=== PATIENT | male | born 1990 | race African-American/Black ===

== ENCOUNTER 2019-07-14 16:46 | Emergency (ER) | payer OTHER ==
[~2019-07-14] VITALS: Ht 182.9 cm; Wt 124.7 kg
[2019-07-14 17:16] LABS: ABSOLUTE NEUTROPHILS 5.8 thou/uL (1.4-8.2); BASOPHILS 0.4 % (0.0-2.0); EOSINOPHILS 1.5 % (0.0-3.0); HEMATOCRIT 38.1 % (42.0-52.0); HEMOGLOBIN 13.3 gm/dL (14.0-18.0); LYMPHOCYTES 26.3 % (24.0-44.0); MCH 29.6 pg (26.0-34.0); MCHC 34.9 g/dL (28.0-37.0); MCV 84.8 fL (80.0-100.0); MONOCYTES 7.4 % (1.0-8.0); PLATELET COUNT 224 thou/uL (150-400); POLYS 64.4 % (36.0-66.0); RDW 12.7 % (10.5-14.5); WBC 9.1 thou/uL (4.0-11.0)
[2019-07-14 17:23] LABS: ANION GAP 9 mmol/L (7-16); BUN 13 mg/dL (7-18); CALCIUM 8.8 mg/dL (8.5-10.1); CHLORIDE 101 mmol/L (98-107); CO2 27 mmol/L (21-32); CREATININE 1.1 mg/dL (0.7-1.3); GLUCOSE 298 mg/dL (74-106); POTASSIUM 3.7 mmol/L (3.5-5.1); SODIUM 137 mmol/L (136-145)
[2019-07-14 17:32] LABS: MAGNESIUM 1.5 mg/dL (1.8-2.4); TROPONIN-I <0.06 ng/mL (<0.06)
[2019-07-14] MEDS ORDERED: LANTUS100 UNIT/M SUBQ ×2 (17:35→18:08)
[2019-07-14] MEDS ORDERED: NOVOLOG100 UNIT/1 SUBQ (17:36)
[2019-07-14] MEDS ORDERED: HYDROCHLOROTH12.5 M1 PO (18:08)
[2019-07-14] MEDS ORDERED: HUMALOG100 UNIT/1 SUBQ (18:08)
[2019-07-14] MEDS ORDERED: LISINOPRIL20 MG PO (19:59)
[2019-07-14] MEDS ORDERED: METFORMIN HCL500 MG PO (19:59)
[2019-07-14 22:01] VITALS: BP 174/106
--- NOTE | 2019-07-17 08:59 | EKG ---
[address] [place] [place] [address] ELECTROCARDIOGRAM REPORT Name: SHAR WYNN Room #: DEP Debbie#: [id number] Admission: 07/14/19 Attend Phys: Discharge: 07/14/19 Date of : [birth year] Report #: [id number] THIS REPORT FOR: //name// [facility] ED Test Date: 2019-07-14 Test Time: 16:58:19 Pat Name: SHAR WYNN Department: Room: Gender: M Implementation Specialist: [facility] 1990 Requested By: Marcelo Cadet Order Number: [id number] MD: Liang Mohr Measurements Intervals [place] Rate: 87 P: 15 NE: 202 QRS: 30 QRSD: 109 T: 251 QT: 363 QTc: 437 Interpretive Statements Sinus rhythm Borderline prolonged NE interval Left atrial enlargement Nonspecific T abnormalities, inferior leads Early repolarization anterior leads No previous ECG available for comparison Electronically Signed On 07-17-2019 8:59:43 CDT by Liang Mohr [email or web address] <ELECTRONICALLY SIGNED> By: Liang Mohr MD 07/17/19 0859 D: 08/1657 57 Liang Mohr MD /MIKE
--- NOTE | 2019-07-17 09:00 | EKG ---
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1990 Requested By: Marcelo Cadet Order Number: [id number] MD: Liang Mohr Measurements Intervals [place] Rate: 79 P: 20 GA: 200 QRS: 35 QRSD: 119 T: 246 QT: 375 QTc: 430 Interpretive Statements Sinus rhythm Probable left atrial enlargement Nonspecific intraventricular conduction delay Nonspecific T changes Early repolarization No previous ECG available for comparison Electronically Signed On 07-17-2019 9:00:38 CDT by Liang Mohr [email or web address] <ELECTRONICALLY SIGNED> By: Liang Mohr MD 07/17/19 0900 1737 1737 Liang Mohr MD /MIKE
== END 2019-07-14 22:01 | disposition home or self-care (01) ==
LOC: ER 16:46
PROVIDERS: Emergency Medicine
DX: E11.9 Type 2 diabetes mellitus without complications (principal); I10 Essential (primary) hypertension; R53.1 Weakness; F17.210 Nicotine dependence, cigarettes, uncomplicated; Z91.14 Patient's other noncompliance with medication regimen

== ENCOUNTER 2019-07-15 18:13 | Inpatient (IN) | payer OTHER ==
[~2019-07-15] VITALS: Ht 185.4 cm; Wt 128.8 kg
[2019-07-15 18:13] VITALS: BP 211/131
[~2019-07-15 18:13] MED LIST: HUMALOG100 UNIT/1 SUBQ; HYDROCHLOROTH12.5 M1 PO; LANTUS100 UNIT/M SUBQ; LISINOPRIL20 MG PO; METFORMIN HCL500 MG PO; NOVOLOG100 UNIT/1 SUBQ
[2019-07-15 20:39] LABS: ABSOLUTE NEUTROPHILS 7.2 thou/uL (1.4-8.2); BASOPHILS 0.8 % (0.0-2.0); EOSINOPHILS 1.7 % (0.0-3.0); HEMATOCRIT 40.1 % (42.0-52.0); HEMOGLOBIN 13.9 gm/dL (14.0-18.0); LYMPHOCYTES 27.2 % (24.0-44.0); MCH 28.9 pg (26.0-34.0); MCHC 34.6 g/dL (28.0-37.0); MCV 83.6 fL (80.0-100.0); MONOCYTES 7.6 % (1.0-8.0); PLATELET COUNT 271 thou/uL (150-400); POLYS 62.7 % (36.0-66.0); RDW 12.7 % (10.5-14.5); WBC 11.4 thou/uL (4.0-11.0)
[2019-07-15 20:45] LABS: ANION GAP 11 mmol/L (7-16); BUN 11 mg/dL (7-18); CALCIUM 9.3 mg/dL (8.5-10.1); CHLORIDE 102 mmol/L (98-107); CO2 25 mmol/L (21-32); CREATININE 0.9 mg/dL (0.7-1.3); GLUCOSE 261 mg/dL (74-106); POTASSIUM 3.3 mmol/L (3.5-5.1); SODIUM 138 mmol/L (136-145)
[2019-07-15 20:55] LABS: LIPASE 95 U/L (73-393); MAGNESIUM 1.8 mg/dL (1.8-2.4); TROPONIN-I <0.06 ng/mL (<0.06)
[2019-07-15 22:08] LABS: URINE BILIRUBIN NEGATIVE (Negative); URINE BLOOD NEGATIVE (Negative); URINE CLARITY CLEAR; URINE COLOR YELLOW; URINE GLUCOSE-RANDOM* 3+ (Negative); URINE KETONES TRACE (Negative); URINE LEUKOCYTES NEGATIVE (Negative); URINE NITRITE NEGATIVE (Negative); URINE PROTEIN (DIPSTICK) NEGATIVE (Negative); URINE UROBILINOGEN 0.2 E.U./dl (0.2-1.0)
[2019-07-15 22:17] LABS: AMP/METHAMP Negative (Negative); BARBITURATES Negative (Negative); BENZODIAZEPINES Negative (Negative); COCAINE Negative (Negative); METHADONE Negative (Negative); OPIATES POSITIVE (Negative); PCP Negative (Negative)
[2019-07-16] VITALS (15 sets, daily range): BP systolic 146–222; BP diastolic 43–128
--- NOTE | 2019-07-16 03:51 | NUR ---
PT ARRIVED [facility] ED 0255. ADMISSION COMPLETE. BP ELEVATED AND PT REPORTED NAUSEA, SEE EMAR. X1 EPISODE OF VOMIT. ALL OTHER VSS. PT SIGNIFICANT OTHER AT BEDSIDE. TELE PLACED, EDUCATION PROVIDED. CALL LIGHT AND PERSONAL BELONINGS WITHIN REACH. WILL CONTINUE POC UNTIL EOS.
[2019-07-16 06:19] LABS: HEMATOCRIT 43.2 % (42.0-52.0); HEMOGLOBIN 14.6 gm/dL (14.0-18.0); MCH 28.7 pg (26.0-34.0); MCHC 33.9 g/dL (28.0-37.0); MCV 84.7 fL (80.0-100.0); RBC 5.1 mil/uL (4.50-6.00); RDW 12.9 % (10.5-14.5); WBC 13.9 thou/uL (4.0-11.0)
[2019-07-16 06:39] LABS: ANION GAP 13 mmol/L (7-16); BUN 10 mg/dL (7-18); CALCIUM 9.4 mg/dL (8.5-10.1); CHLORIDE 100 mmol/L (98-107); CHOLESTEROL 251 mg/dL (<200); CO2 24 mmol/L (21-32); CREATININE 1.1 mg/dL (0.7-1.3); GLUCOSE 307 mg/dL (74-106); HDL CHOLESTEROL 36 mg/dL (>40); LDL CHOLESTEROL 202 mg/dL (<100); POTASSIUM 3.8 mmol/L (3.5-5.1); SODIUM 137 mmol/L (136-145); TRIGLYCERIDE 66 mg/dL (<150); TROPONIN-I <0.06 ng/mL (<0.06); VLDL 13 mg/dL (<40)
--- NOTE | 2019-07-16 18:42 | NUR ---
PT ALERT AND ORIENTED TIMES FOUR. BP HIGH CARDENE GTT STARTED AT 2.5 THIS MORNING WITH LITTLE HELP. GTT INCREASED AND NOW INFUSING AT 5. OTHER VSS. SR ON TELE. PT C/O HEADACHE PRN MEDICATIONS GIVEN WITH GOOD RELEIF. PT TOLERATES MEDS AND MEALS. PT VOIDS PER URINAL. PT GIRLFRIND AT BEDSIDE. WILL CONTINUE TO MONITOR.
[2019-07-17] VITALS (28 sets, daily range): BP systolic 130–184; BP diastolic 61–113
--- NOTE | 2019-07-17 04:54 | NUR ---
PT MAKING PROGRESS TOWARDS GOALS. DENIES ANY NAUSEA OR GI DISTRESS OVERNIGHT. TYLENOL ONCE FOR COMPLAINT OF HEADACHE TO WHICH PT VOICED COMPLETE RELIEF. CARDENE GTT IN PROGRESS WITH GOAL TO KEEP SBP LESS THAN 160. BRIEFLY OFF WHEN PT ACCIDENTALLY DISCONTINUED HIS IV LINE. SEE MED TITRATION INTERVENTION FOR HR/BP RESULTS AND CARDENE DOSING OVERNIGHT.
--- NOTE | 2019-07-17 09:09 | EKG ---
[address] [place] [address] ELECTROCARDIOGRAM REPORT Name: SHAR WYNN Room #: 355-P ADM IN M.R.#: [id number] Admission: 07/16/19 Attend Phys: Lashawn Lazo MD Discharge: Date of : [birth year] Report #: [id number] THIS REPORT FOR: //name// [facility] ED Test Date: 2019-07-15 Test Time: 18:21:38 Pat Name: SHAR WYNN Department: Room: [facility] Gender: M Corporate Real Estate Specialist: pratik : 1990 Requested By: Marcelo Cadet Order Number: [id number] MD: Liang Mohr Measurements Intervals [place] Rate: 71 P: -21 OK: 200 QRS: 46 QRSD: 100 T: 266 QT: 371 QTc: 404 Interpretive Statements Sinus rhythm T wave changes similar to prior EKG. Electronically Signed On 07-17-2019 9:08:57 CDT by Liang Mohr [email or web address] <ELECTRONICALLY SIGNED> By: Liang Mohr MD 07/17/19907 182 182 MD PATRICIO Linares
--- NOTE | 2019-07-17 09:10 | EKG ---
[place] [address] [facility] [place] [address] ELECTROCARDIOGRAM REPORT Name: SHAR WYNN Room #: 355-P ADM IN M.R.#: [id number] Admission: 07/16/19 Attend Phys: Lashawn Lazo MD Discharge: Date of : [birth year] Report #: [id number] THIS REPORT FOR: //name// [facility] ED Test Date: 2019-07-15 Test Time: 20:05:50 Pat Name: SHAR WYNN Department: Room: [facility] Gender: M Natural Resource Specialist: sola contreras : 1990 Requested By: Marcelo Cadet Order Number: [id number] MD: Everett Holman Measurements Intervals [place] Rate: 93 P: 55 NC: 207 QRS: 44 QRSD: 107 T: 268 QT: 342 QTc: 426 Interpretive Statements Sinus rhythm Prolonged NC interval RSR' in V1 or V2, probably normal variant Abnormal T, consider repolarization abnormality Borderline ST elevation, anterior leads, consider early repolarization No previous ECG available for comparison Electronically Signed On 07-17-2019 9:09:46 CDT by Everett Holman [email or web address] <ELECTRONICALLY SIGNED> By: Everett Holman MD, [facility] 07/17/19908 04 04 Everett Holman MD, [facility] /EPI
--- NOTE | 2019-07-17 09:10 | EKG ---
[place] [address] [facility] [place] [address] ELECTROCARDIOGRAM REPORT Name: SHAR WYNN Room #: 355-P ADM IN M.R.#: [id number] Admission: 07/16/19 Attend Phys: Lashawn Lazo MD Discharge: Date of : [birth year] Report #: [id number] THIS REPORT FOR: //name// [facility] ED Test Date: 2019-07-16 Test Time: 01:30:09 Pat Name: SHAR WYNN Department: Room: [facility] Gender: M Quick Technician: sola contreras : 1990 Requested By: Marcelo Cadet Order Number: [id number] MD: Liang Mohr Measurements Intervals [place] Rate: 101 P: 25 VT: 202 QRS: 35 QRSD: 101 T: -75 QT: 332 QTc: 431 Interpretive Statements Sinus tachycardia Borderline prolonged VT interval LAE, consider biatrial enlargement Borderline T abnormalities, diffuse leads Borderline ST elevation, anterior leads No previous ECG available for comparison Electronically Signed On 07-17-2019 9:09:52 CDT by Liang Mohr [email or web address] <ELECTRONICALLY SIGNED> By: Liang Mohr MD 07/17/19908 9 9 Liang Mohr MD /MIKE
--- NOTE | 2019-07-17 09:52 | NUR ---
ASSESSMENT: CM REVIEWED CHART AND MET WITH PATIENT AT THE BEDSIDE. PT IS ALERT AND ORIENTED X4. PT WAS ADMITTED WITH SYNCOPE/HYPERTENSIVE URGENCY. PT REPORTS THAT HE LIVES IN A HOUSE WITH HIS MOTHER. PT REPORTS HE IS FULLY INDEPENDENT WITH ADLS AND AMBULATION. PT REPORTS HE CURRENTLY DOES NOT HAVE INSURANCE. CM SENT REFERRAL TO [facility]. CM DISCUSSED ROLE. PT STATES HE WILL TRY AND COME UP WITH [facility] TO PAY FOR SCRIPT IF HE IS DISCHARGED ON ANY MEDICATION. CM WILL CONTINUE TO FOLLOW. PT REPORTS OTHER THEN POSSIBLE HELP WITH [facility] HE WILL HAVE NO NEEDS AT DISCHARGE. CM WILL CONTINUE TO FOLLOW.
--- NOTE | 2019-07-17 11:45 | 2DMMODE ---
[facility] [address] [place] [address] 2 D/M-MODE ECHOCARDIOGRAM Name: SHAR WYNN Room #: 355-P ADM IN .R.#: [id number] Admission: 07/16/19 Attend Phys: Lashawn Lazo MD Discharge: Date of : [birth year] Date of Service: 07/17/19 1145 Report #: [id number] THIS REPORT FOR: //name// APPROVED REPORT Study performed: 07/17/2019 10:57:49 EXAM: Comprehensive 2D, Doppler, and color-flow Echocardiogram Patient Location: In-Patient Room #: 355 Status: routine BSA: 2.47 HR: 85 bpm BP: 167/87 mmHg Rhythm: NSR Other Information Study Quality: Good Indications Syncope Hypertension/HDD 2D Dimensions RVDd: 37.13 mm IVSd: 16.30 (7-11mm) LVOT Diam: 24.01 (18-24mm) LVDd: 40.28 mm PWd: 16.96 (7-11mm) Ascending Ao: 28.56 (22-36mm) LVDs: 26.54 (25-40mm) Aortic Root: 30.44 mm IVC: 17.00 mm Volumes Left Atrial Volume (Systole) Single Plane 4CH: 33.64 mL Single Plane 2CH: 38.00 mL LA ESV Index: 16.00 mL/m2 Aortic Valve AoV Peak Mehran.: 1.59 m/s AO Peak Gr.: 10.11 mmHg LVOT Max P.20 mmHg LVOT Max V: 1.02 m/s MISA Vmax: 2.92 cm2 Mitral Valve E/A Ratio: 1.1 MV Decel. Time: 169.76 ms [facility] [address] [place] [address] 2 D/M-MODE ECHOCARDIOGRAM Name: SHAR WYNN Room #: 355-[facility] IN [facility].#: [id number] Admission: 07/16/19 Attend Phys: Lashawn Lazo MD Discharge: Date of : 89 Date of Service: 07/17/19 1145 Report #: [id number] E Max Mehran.: 0.70 m/s MV A Mehran.: 0.65 m/s MV PHT: 49.23 ms IVRT: 96.89 ms Pulmonary Valve PV Peak Mehran.: 1.26 m/s PV Peak Gr.: 6.39 mmHg Pulmonary Vein P Vein S: 0.35 m/s P Vein A: 0.31 m/s P Vein D: 0.55 m/s P Vein A Dur.: 87.7 msec P Vein S/D Ratio: 0.64 Left Ventricle The left ventricle is normal size. There is normal LV segmental wall motion. Mild to moderate concentric left ventricular hypertrophy. Left ventricular systolic function is normal. The left ventricular ejection fraction is within the normal range. LVEF is 60-65%. Left ventricular filling pattern is normal for age. Right Ventricle The right ventricle is normal size. The right ventricular systolic function is normal. Atria The left atrium size is normal. The right atrium size is normal. Aortic Valve The aortic valve is normal in structure. No aortic regurgitation is present. There is no aortic valvular stenosis. Mitral Valve The mitral valve is normal in structure. There is no mitral valve regurgitation noted. No evidence of mitral valve stenosis. Tricuspid Valve The tricuspid valve is normal in structure. There is no tricuspid valve regurgitation noted. Pulmonic Valve The pulmonary valve is normal in structure. There is no pulmonic valvular regurgitation. Great Vessels The aortic root is normal in size. IVC is normal in size and [facility] [address] [place] [address] 2 D/M-MODE ECHOCARDIOGRAM Name: SHAR WYNN Room #: 355-P [facility] IN M.R.#: [id number] Admission: 07/16/19 Attend Phys: Lashawn Lazo MD Discharge: Date of : [birth year] Date of Service: 07/17/19 1145 Report #: [id number] collapses >50% with inspiration. Pericardium Trace pericardial effusion. <Conclusion> The left ventricle is normal size. Mild to moderate concentric left ventricular hypertrophy. LVEF is 60-65%. The aortic valve is normal in structure. The mitral valve is normal in structure. The tricuspid valve is normal in structure. The pulmonary valve is normal in structure. Trace pericardial effusion. <ELECTRONICALLY SIGNED> By: Blaise Andino MD 07/17/19 1145 1145 1145 Blaise Andino MD /INF
[2019-07-17 12:58] LABS: HEMATOCRIT 44.3 % (42.0-52.0); HEMOGLOBIN 14.7 gm/dL (14.0-18.0); MCH 28.2 pg (26.0-34.0); MCHC 33.2 g/dL (28.0-37.0); MCV 84.8 fL (80.0-100.0); RBC 5.22 mil/uL (4.50-6.00); RDW 13.1 % (10.5-14.5)
[2019-07-17 13:17] LABS: CALCIUM 9.3 mg/dL (8.5-10.1); CREATININE 1.1 mg/dL (0.7-1.3); MAGNESIUM 1.6 mg/dL (1.8-2.4); POTASSIUM 3.7 mmol/L (3.5-5.1)
--- NOTE | 2019-07-17 17:50 | NUR ---
PT EDUCATED ON IMPORTANCE OF TAKING MEDS/INSULIN...CONSULT PLACED FOR NUTRITION EDUCATION...SWS MET WITH PATIENT ABOUT MEDS AT [facility]...
[2019-07-18 03:06] LABS: GLYCOHEMOGLOBIN (HGB A1C) 10.7 % (4.8-5.6)
[2019-07-18 03:06] LABS: GLYCOHEMOGLOBIN (HGB A1C) 10.8 % (4.8-5.6)
[2019-07-18 03:49] VITALS: BP 147/90
--- NOTE | 2019-07-18 05:54 | NUR ---
PT MAKING PROGRESS TOWARDS GOALS. TYLENOL ONCE FOR HEADACHE TO WHICH PT VOICED COMPLETE RELIEF. SBP LESS THAN 160 SINCE 2200 HOURS. PT REPORTING THAT HE HAS BEEN FEELING DIZZINESS WHEN UP ON HIS FEET BUT ONLY ON AN INTERMITTENT BASIS.
[2019-07-18 07:31] VITALS: BP 162/106; BP 162/109
--- NOTE | 2019-07-18 08:47 | NUR ---
care of pt assumed this am @ ~0700. both pt and girlfriend noted to be in bed together this am. pt awakened @ 0810 and informed of impending mri, need to void before they take him down in [place]. pt's girlfriend offered a guest tray for breakfast this am, but states she has no money to pay for it. no family or friends in the room at this time.
[2019-07-18 11:25] VITALS: BP 176/107
--- NOTE | 2019-07-18 11:57 | NUR ---
Nutrition: Received consult for diet education for noncompliant diabetic and uncontrolled HTN. A1c elevated at 10.7% (07/17) w/ BGs ranging 230-266 mg/dl on 07/17. Fasting BG today 179. On SSI only. Per EMR, pt not taking meds at home. RD educated pt and girlfriend on necessary food changes to work towards. Per food recall, pt not watching portion sizes and consuming lots of sugar sweetened beverages (juice, soda). Urged 60 g carb limit per meal ideally once discharged and increased vegetable intake with protein present. Label reading strongly encouraged. RD provided example meal scenarios to practice carb counting. Referred to OP Dietitian for further ed. Low nutrition risk.
[2019-07-18 13:11] VITALS: BP 176/109
--- NOTE | 2019-07-18 15:22 | NUR ---
care of pt assumed this am @ ~0700. pt and his girlfriend noted to be in the bed together, as girlfriend states that the cot is uncomfortable. pt had an mri this am r/o stroke. pt co headache 03/23 request tylenol which gave him pain relief 12/24. pt denies soa, no n/v/d today. pt w/ a good appetite for food and fluid today. pt requesting gallery items, but then noted to be giving them to his girlfriend. guest tray offered to pt's girlfriend, but she states she has no money for the tray at this time. pt encouraged to ask family or friends coming to visit him today to bring his girlfriend some food and/or money for food, he said he would. pt noted to be very anxious, restless and agitated this afternoon (2-3pm), noted to be calling on his call light many times to talk w/ staff and dr. jha re: mri results, what medications he has been given, need to look at his chart, etc. dr. jha at for ~30 minutes this afternoon to educate and calm pt and his girlfriend. dr. navarro called re: consult today.
--- NOTE | 2019-07-18 15:36 | NUR ---
ON-GOING ASSESSMENT: CM REVIEWED CHART AND SPOKE WITH ATTENDING AND BEDSIDE RN. NEURO HAS BEEN CONSULTED TO SEE PATIENT THIS EVENING AND ECHO ORDERED. PT IS ON STROKE PROTOCOL. CM PROVIDED PATIENT WITH [facility] WELL FIND A PHYSICIAN RESOURCE SHEET FOR FOLLOW UP WHEN HE IS DISCHARGED. PT ALSO GAVE PATIENT INFORMATION FOR [facility].
[2019-07-18 16:26] VITALS: BP 168/96
--- NOTE | 2019-07-19 07:09 | NUR ---
RECEIVED ORDER FOR OT EVALUATION. PATIENT DISCHARGED PRIOR TO OT BEING INITIATED.
== END 2019-07-18 18:13 | disposition left against medical advice (07) | DRG 65 ==
LOC: ER 18:13 → EROBS 07-16 01:14 → 3W 07-16 01:14
PROVIDERS: Emergency Medicine; Internal Medicine; Nurse Practitioner Family; ADMIT Internal Medicine
DX: I63.9 Cerebral infarction, unspecified (principal); I16.1 Hypertensive emergency; I10 Essential (primary) hypertension; E11.9 Type 2 diabetes mellitus without complications; E78.5 Hyperlipidemia, unspecified; F17.210 Nicotine dependence, cigarettes, uncomplicated; F19.10 Other psychoactive substance abuse, uncomplicated; E66.9 Obesity, unspecified; Z68.37 Body mass index [BMI] 37.0-37.9, adult; Z79.4 Long term (current) use of insulin; Z79.899 Other long term (current) drug therapy; Z91.19 Patient's noncompliance with other medical treatment and regimen; Z71.6 Tobacco abuse counseling; Z71.51 Drug abuse counseling and surveillance of drug abuser; Z82.49 Family history of ischemic heart disease and other diseases of the circulatory system
CPT/HCPCS: 10879